=== PATIENT | male | born 2000 | race Caucasian/White ===

== ENCOUNTER 2022-03-11 14:52 | Emergency (ER) | payer SELFPAY ==
[2022-03-11] MEDS ORDERED: cefTRIAXone\\ROCEPHIN 500 MG VIAL ONE (15:27)
[2022-03-11 16:20] LABS: Bilirubin Negative (Negative); Blood, Urine Negative (Negative); Glucose, Urine (Dipstick) Normal (Negative); Ketone, Urine Negative (Negative); Leukocyte 500 Leu/uL (Negative); Nitrite Negative (Negative); Protein, Urine (Dipstick) 20 mg/dL (Neg-Trace); Specific Gravity, Urine 1.034 (1.002-1.036); Squamous Epithelial None Seen HPF (0-3); WBC/HPF Greater than 50 HPF (0-3)
[2022-03-11 16:21] LABS: Bacteria/HPF 1+ HPF (None Seen); Clarity Cloudy (Clear)
[2022-03-12 16:55] LABS: Chlam.trachomatis by PCR,Urine DETECTED (NotDetected)
== END 2022-03-11 16:01 | disposition home or self-care (01) ==
LOC: ERS 14:52
DX: N34.2 Other urethritis (principal)
CPT/HCPCS: 81003; 81015; 87491; 87591; 96372; 99283; J0696

== ENCOUNTER 2022-04-19 21:56 | Emergency (ER) | payer OTHER, SELFPAY ==
[2022-04-19] MEDS ORDERED: Ketorolac Tromethamine 30 MG/ML VIAL ONE (23:41)
[2022-04-19] MEDS ORDERED: Cyclobenzaprine 10 MG TAB ONE (23:41)
== END 2022-04-19 23:52 | disposition home or self-care (01) ==
LOC: ERS 21:56
DX: M54.50 Low back pain, unspecified (principal); M25.561 Pain in right knee; V89.2XXA Person injured in unspecified motor-vehicle accident, traffic, initial encounter
CPT/HCPCS: 96372; 99283; J1885

== ENCOUNTER 2022-12-29 12:02 | Emergency (ER) | payer SELFPAY ==
[2022-12-29] MEDS ORDERED: Acetaminophen 500 MG TAB ONE (12:19)
== END 2022-12-29 13:32 | disposition home or self-care (01) ==
LOC: ERS 12:02
DX: R07.9 Chest pain, unspecified (principal)
CPT/HCPCS: 71045; 93005